=== PATIENT | male | born 1935 | race African-American/Black ===

== ENCOUNTER 2018-10-22 19:57 | Inpatient (IN) | payer MEDICARE, OTHER ==
[~2018-10-22] VITALS: Ht 182.9 cm; Wt 94.4 kg
[2018-10-22] MEDS ORDERED: SODIUM CHLORIDE 0.9% 1,000 ML IV ONE (20:14)
[2018-10-22] MEDS ORDERED: ONDANSETRON HCL 4MG/2ML INJ IV STA (20:14)
[2018-10-22 20:44] LABS: INR 1.1; PROTHROMBIN TIME 11.3 sec (9.6-11.0)
[2018-10-22 20:45] LABS: CHLORIDE 109 mEq/L (98-107)
[2018-10-22 20:47] LABS: BASOPHILS % 0.2 % (0.0-2.0); EOSINOPHILS % 0.1 % (0.0-5.0); HEMATOCRIT. 54.6 % (42.0-52.0); HEMOGLOBIN. 18.3 g/dL (14.0-18.0); LYMPHOCYTES % 8.6 % (20.0-50.0); MEAN CORPUSCULAR HEMOGLOBIN 27.9 pg (28.0-32.0); MEAN PLATELET VOLUME 9.4 fl (7.4-10.4); MONOCYTES % 6.6 % (2.0-8.0); NEUTROPHILS % 84.5 % (40.0-76.0); PLATELET 146 x1000/uL (130-400); RED BLOOD CELL COUNT 6.58 mill/uL (4.7-6.1); RED CELL DISTRIBUTION WIDTH 14.4 % (11.6-14.6)
[2018-10-22 20:53] LABS: CREATINE KINASE 112 IU/L (39-308)
[2018-10-22] MEDS ORDERED: IOHEXOL-350 100 ML BOTTLE ONE (22:03)
[2018-10-22] MEDS ORDERED: ASPIRIN 300MG SUPP PR ONE (22:30)
[2018-10-22] MEDS ORDERED: ASPIRIN 325MG TABLET PO ONE (22:30)
[2018-10-23] VITALS (8 sets, daily range): BP systolic 120–167; BP diastolic 32–118
[2018-10-23] MEDS ORDERED: ONDANSETRON HCL 4MG/2ML INJ IV PRN (08:45)
[2018-10-23] MEDS ORDERED: DEXTROSE 50% WATER 50ML SYRINGE IV PRN (08:45)
[2018-10-23] MEDS ORDERED: ACETAMINOPHEN 650MG SUPP PR PRN (08:45)
[2018-10-23] MEDS: INSULIN LISPRO 100 UNITS/ML SUBCUT SCH ×3 (09:17→18:00)
[2018-10-23] MEDS: SODIUM CHLORIDE 0.9% 1,000 ML IV SCH (09:51)
[2018-10-23] MEDS: BLOOD SUGAR DIAGNOSTIC STRIP TEST SCH ×4 (09:54→21:00)
[2018-10-23] MEDS ORDERED: ASPIRIN 300MG SUPP PR SCH (10:00)
[2018-10-23] MEDS: LORAZEPAM 2MG/ML CPJ IV PRN ×2 (12:09→20:44)
[2018-10-23] MEDS: ASPIRIN 600MG SUPP PR SCH (12:29)
[2018-10-23 13:02] LABS: BASOPHILS % 0.8 % (0.0-2.0); EOSINOPHILS % 0.4 % (0.0-5.0); HEMOGLOBIN. 17.8 g/dL (14.0-18.0); LYMPHOCYTES % 15.7 % (20.0-50.0); MEAN CORPUSCULAR HEMOGLOBIN 27.9 pg (28.0-32.0); MEAN CORPUSCULAR VOLUME 83.4 fL (80.0-94.0); MEAN PLATELET VOLUME 9.2 fl (7.4-10.4); MONOCYTES % 9.7 % (2.0-8.0); NEUTROPHILS % 73.4 % (40.0-76.0); PLATELET 158 x1000/uL (130-400); RED BLOOD CELL COUNT 6.36 mill/uL (4.7-6.1); RED CELL DISTRIBUTION WIDTH 14.5 % (11.6-14.6)
[2018-10-23 13:07] LABS: CHLORIDE 109 mEq/L (98-107)
[2018-10-23 13:14] LABS: LDL CHOLESTEROL 117 mg/dL (5-100)
[2018-10-23 13:16] LABS: HDL CHOLESTEROL 48 mg/dL (40-59)
[2018-10-24] VITALS (11 sets, daily range): BP systolic 105–198; BP diastolic 76–122
[2018-10-24] MEDS: SODIUM CHLORIDE 0.9% 1,000 ML IV SCH ×2 (00:55→12:00)
[2018-10-24] MEDS: INSULIN LISPRO 100 UNITS/ML SUBCUT SCH ×5 (00:55→21:00)
[2018-10-24 07:26] LABS: BASOPHILS % 0.4 % (0.0-2.0); EOSINOPHILS % 0.1 % (0.0-5.0); HEMATOCRIT. 53.3 % (42.0-52.0); HEMOGLOBIN. 17.7 g/dL (14.0-18.0); LYMPHOCYTES % 15.2 % (20.0-50.0); MEAN CORPUSCULAR HEMOGLOBIN 27.7 pg (28.0-32.0); MEAN CORPUSCULAR VOLUME 83.3 fL (80.0-94.0); MEAN PLATELET VOLUME 9.3 fl (7.4-10.4); MONOCYTES % 9.7 % (2.0-8.0); NEUTROPHILS % 74.6 % (40.0-76.0); PLATELET 152 x1000/uL (130-400); RED CELL DISTRIBUTION WIDTH 14.4 % (11.6-14.6)
[2018-10-24] MEDS: BLOOD SUGAR DIAGNOSTIC STRIP TEST SCH ×2 (07:30→21:15)
[2018-10-24 07:41] LABS: CHLORIDE 107 mEq/L (98-107)
[2018-10-24] MEDS: LORAZEPAM 2MG/ML CPJ IV PRN (10:09)
[2018-10-24] MEDS ORDERED: HYDRALAZINE 20MG/ML VIAL IV NR (10:15)
[2018-10-24] MEDS: ASPIRIN 600MG SUPP PR SCH (10:43)
[2018-10-24] MEDS ORDERED: DEXTROSE 50% WATER 50ML SYRINGE IV PRN (11:00)
[2018-10-24 12:07] LABS: ETHANOL BLOOD < 10 mg/dL
[2018-10-24 12:11] LABS: LDL CHOLESTEROL 102 mg/dL (5-100)
[2018-10-24 12:12] LABS: HDL CHOLESTEROL 52 mg/dL (40-59); T4 FREE 1.04 ng/dL (0.76-1.46)
[2018-10-24 12:27] LABS: FOLIC ACID (FOLATE) SERUM >20 ng/mL ng/mL (>5.38)
[2018-10-24 12:38] LABS: VITAMIN B12 SERUM 752 pg/mL (211-911)
[2018-10-24] MEDS: ENOXAPARIN 80MG/0.8ML SYR SUBCUT SCH ×2 (14:20→22:27)
[2018-10-24] MEDS: ATORVASTATIN CALCIUM 40MG TABLET PO SCH (22:27)
[2018-10-25] VITALS (12 sets, daily range): BP systolic 127–163; BP diastolic 73–103
[2018-10-25] MEDS: SODIUM CHLORIDE 0.9% 1,000 ML IV SCH ×2 (01:42→21:11)
[2018-10-25 06:18] LABS: BASOPHILS % 0.6 % (0.0-2.0); EOSINOPHILS % 0.2 % (0.0-5.0); HEMATOCRIT. 54.5 % (42.0-52.0); HEMOGLOBIN. 18.1 g/dL (14.0-18.0); LYMPHOCYTES % 10.4 % (20.0-50.0); MEAN CORPUSCULAR HEMOGLOBIN 27.7 pg (28.0-32.0); MEAN CORPUSCULAR VOLUME 83.3 fL (80.0-94.0); MEAN PLATELET VOLUME 9.7 fl (7.4-10.4); MONOCYTES % 11.3 % (2.0-8.0); NEUTROPHILS % 77.5 % (40.0-76.0); PLATELET 168 x1000/uL (130-400); RED BLOOD CELL COUNT 6.54 mill/uL (4.7-6.1); RED CELL DISTRIBUTION WIDTH 14.5 % (11.6-14.6)
[2018-10-25 06:31] LABS: CHLORIDE 107 mEq/L (98-107)
[2018-10-25] MEDS: BLOOD SUGAR DIAGNOSTIC STRIP TEST SCH ×4 (07:30→20:38)
[2018-10-25] MEDS: INSULIN LISPRO 100 UNITS/ML SUBCUT SCH ×4 (08:00→21:10)
[2018-10-25] MEDS: ENOXAPARIN 80MG/0.8ML SYR SUBCUT SCH ×2 (11:06→23:13)
[2018-10-25] MEDS: CEFEPIME 1,000 MG in DEXTROSE 5% WATER 50 ML IV SCH ×2 (11:07→23:13)
[2018-10-25] MEDS ORDERED: IPRATROPIUM/ALBUTEROL 0.5-3(2.5)MG/3ML NEB HHN PRN (11:15)
[2018-10-25] MEDS: METRONIDAZOLE 500 MG PREMIX 100 ML IV SCH ×2 (12:35→20:38)
[2018-10-25] MEDS: IPRATROPIUM/ALBUTEROL 0.5-3(2.5)MG/3ML NEB HHN SCH ×3 (12:44→21:12)
[2018-10-25] MEDS: ACETYLCYSTEINE 100MG/ML 10% VIAL 4ML INH SCH ×2 (12:44→21:12)
[2018-10-25 14:01] LABS: BG BASE EXCESS 0.1 mmol/L (-2.0-2.0); BG CARBOXYHEMOGLOBIN 0.3 % (0.5-1.5); BG DEOXYHEMOGLOBIN 7.6 % (0.0-5.0); BG FRACTION INSPIRED OXYGEN 36; BG HCO3 ACT 22.6 mmol/L (22.0-26.0); BG METHEMOGLOBIN 0.6 % (0.0-1.5); BG OXYGEN SATURATION 92.3 % (92.0-98.5); BG OXYHEMOGLOBIN 91.5 % (94.0-97.0); BG PCO2 32.1 mmHg (35.0-45.0); BG PH 7.466 (7.350-7.450); BG PO2 58.3 mmHg (75.0-100.0); BG SAMPLE SITE RIGHT RADIAL; BG TOTAL HEMOGLOBIN 19.2 g/dL (12.0-18.0); BG VENT MODE NASAL CANNULA
[2018-10-25] MEDS: ATORVASTATIN CALCIUM 40MG TABLET PO SCH (20:38)
[2018-10-26] VITALS (10 sets, daily range): BP systolic 128–151; BP diastolic 62–79
[2018-10-26] MEDS: IPRATROPIUM/ALBUTEROL 0.5-3(2.5)MG/3ML NEB HHN SCH ×6 (00:36→20:41)
[2018-10-26] MEDS: METRONIDAZOLE 500 MG PREMIX 100 ML IV SCH ×3 (03:16→20:17)
[2018-10-26] MEDS: SODIUM CHLORIDE 0.9% 1,000 ML IV SCH ×2 (03:18→17:20)
[2018-10-26] MEDS: ACETYLCYSTEINE 100MG/ML 10% VIAL 4ML INH SCH ×2 (04:15→11:58)
[2018-10-26 06:55] LABS: BASOPHILS % 0.3 % (0.0-2.0); HEMATOCRIT. 52.1 % (42.0-52.0); HEMOGLOBIN. 17.3 g/dL (14.0-18.0); LYMPHOCYTES % 10.9 % (20.0-50.0); MEAN CORPUSCULAR HEMOGLOBIN 27.7 pg (28.0-32.0); MEAN CORPUSCULAR VOLUME 83.4 fL (80.0-94.0); MEAN PLATELET VOLUME 9.8 fl (7.4-10.4); MONOCYTES % 11.2 % (2.0-8.0); NEUTROPHILS % 77.6 % (40.0-76.0); PLATELET 137 x1000/uL (130-400); RED BLOOD CELL COUNT 6.25 mill/uL (4.7-6.1); RED CELL DISTRIBUTION WIDTH 14.6 % (11.6-14.6)
[2018-10-26 07:17] LABS: CHLORIDE 109 mEq/L (98-107)
[2018-10-26] MEDS: INSULIN LISPRO 100 UNITS/ML SUBCUT SCH ×3 (08:00→21:00)
[2018-10-26] MEDS: BLOOD SUGAR DIAGNOSTIC STRIP TEST SCH ×3 (08:29→20:17)
[2018-10-26 09:12] LABS: BG BASE EXCESS 0.2 mmol/L (-2.0-2.0); BG CARBOXYHEMOGLOBIN 0.1 % (0.5-1.5); BG DEOXYHEMOGLOBIN 4.2 % (0.0-5.0); BG FRACTION INSPIRED OXYGEN 66; BG HCO3 ACT 22.8 mmol/L (22.0-26.0); BG METHEMOGLOBIN 0.4 % (0.0-1.5); BG OXYGEN SATURATION 95.8 % (92.0-98.5); BG OXYHEMOGLOBIN 95.3 % (94.0-97.0); BG PCO2 32.1 mmHg (35.0-45.0); BG PH 7.469 (7.350-7.450); BG PO2 75.6 mmHg (75.0-100.0); BG SAMPLE SITE RIGHT BRACHIAL; BG TOTAL HEMOGLOBIN 17.8 g/dL (12.0-18.0); BG VENT MODE VAPOTHERM
[2018-10-26] MEDS: CEFEPIME 1,000 MG in DEXTROSE 5% WATER 50 ML IV SCH ×2 (17:19→23:51)
[2018-10-26] MEDS: ENOXAPARIN 80MG/0.8ML SYR SUBCUT SCH ×2 (17:19→23:51)
[2018-10-26] MEDS: ATORVASTATIN CALCIUM 40MG TABLET PO SCH (20:17)
[2018-10-27] VITALS (12 sets, daily range): BP systolic 134–169; BP diastolic 70–93
[2018-10-27] MEDS: IPRATROPIUM/ALBUTEROL 0.5-3(2.5)MG/3ML NEB HHN SCH ×6 (03:24→20:44)
[2018-10-27] MEDS: SODIUM CHLORIDE 0.9% 1,000 ML IV SCH (06:15)
[2018-10-27] MEDS: METRONIDAZOLE 500 MG PREMIX 100 ML IV SCH ×3 (06:16→20:46)
[2018-10-27] MEDS: INSULIN LISPRO 100 UNITS/ML SUBCUT SCH ×4 (08:00→21:09)
[2018-10-27 08:03] LABS: BASOPHILS % 0.5 % (0.0-2.0); EOSINOPHILS % 0.6 % (0.0-5.0); HEMATOCRIT. 50.4 % (42.0-52.0); HEMOGLOBIN. 16.8 g/dL (14.0-18.0); MEAN CORPUSCULAR HEMOGLOBIN 27.7 pg (28.0-32.0); MEAN CORPUSCULAR VOLUME 83.3 fL (80.0-94.0); MEAN PLATELET VOLUME 9.7 fl (7.4-10.4); MONOCYTES % 10.9 % (2.0-8.0); PLATELET 125 x1000/uL (130-400); RED BLOOD CELL COUNT 6.05 mill/uL (4.7-6.1); RED CELL DISTRIBUTION WIDTH 14.7 % (11.6-14.6)
[2018-10-27] MEDS: BLOOD SUGAR DIAGNOSTIC STRIP TEST SCH ×4 (08:27→21:00)
[2018-10-27 08:32] LABS: CHLORIDE 112 mEq/L (98-107)
[2018-10-27] MEDS: ACETYLCYSTEINE 100MG/ML 10% VIAL 4ML INH SCH ×3 (09:03→16:12)
[2018-10-27] MEDS: ENOXAPARIN 80MG/0.8ML SYR SUBCUT SCH (11:36)
[2018-10-27] MEDS: CEFEPIME 1,000 MG in DEXTROSE 5% WATER 50 ML IV SCH ×2 (11:36→23:48)
[2018-10-27] MEDS: ATORVASTATIN CALCIUM 40MG TABLET PO SCH (20:45)
[2018-10-27] MEDS: HYDRALAZINE 20MG/ML VIAL IV PRN (21:10)
[2018-10-28] VITALS (13 sets, daily range): BP systolic 137–172; BP diastolic 72–90
[2018-10-28] MEDS: IPRATROPIUM/ALBUTEROL 0.5-3(2.5)MG/3ML NEB HHN SCH ×8 (00:10→21:52)
[2018-10-28] MEDS: ACETYLCYSTEINE 100MG/ML 10% VIAL 4ML INH SCH ×3 (00:10→16:13)
[2018-10-28] MEDS: METRONIDAZOLE 500 MG PREMIX 100 ML IV SCH ×3 (04:14→20:44)
[2018-10-28] MEDS: HYDRALAZINE 20MG/ML VIAL IV PRN (05:53)
[2018-10-28] MEDS: SODIUM CHLORIDE 0.9% 1,000 ML IV SCH ×3 (06:25→23:22)
[2018-10-28] MEDS: INSULIN LISPRO 100 UNITS/ML SUBCUT SCH ×4 (08:00→20:50)
[2018-10-28] MEDS: BLOOD SUGAR DIAGNOSTIC STRIP TEST SCH ×4 (08:15→20:44)
[2018-10-28 08:53] LABS: BASOPHILS % 0.3 % (0.0-2.0); EOSINOPHILS % 0.4 % (0.0-5.0); HEMATOCRIT. 49.6 % (42.0-52.0); HEMOGLOBIN. 16.8 g/dL (14.0-18.0); LYMPHOCYTES % 11.1 % (20.0-50.0); MEAN CORPUSCULAR HEMOGLOBIN 28.2 pg (28.0-32.0); MEAN CORPUSCULAR VOLUME 83.2 fL (80.0-94.0); MEAN PLATELET VOLUME 9.9 fl (7.4-10.4); MONOCYTES % 10.2 % (2.0-8.0); PLATELET 136 x1000/uL (130-400); RED BLOOD CELL COUNT 5.97 mill/uL (4.7-6.1); RED CELL DISTRIBUTION WIDTH 14.6 % (11.6-14.6)
[2018-10-28 08:54] LABS: CHLORIDE 111 mEq/L (98-107); INR 1.2; PROTHROMBIN TIME 11.8 sec (9.6-11.0)
[2018-10-28] MEDS: CEFEPIME 1,000 MG in DEXTROSE 5% WATER 50 ML IV SCH ×2 (11:08→23:23)
[2018-10-28] MEDS ORDERED: DOCUSATE SODIUM 250MG CAPSULE PO SCH (15:45)
[2018-10-28] MEDS ORDERED: LORAZEPAM 2MG/ML CPJ IV NR (16:00)
[2018-10-28] MEDS: ATORVASTATIN CALCIUM 40MG TABLET PO SCH (20:44)
[2018-10-29] VITALS (16 sets, daily range): BP systolic 126–176; BP diastolic 60–93
[2018-10-29] MEDS: ACETYLCYSTEINE 100MG/ML 10% VIAL 4ML INH SCH ×3 (00:41→16:41)
[2018-10-29] MEDS: IPRATROPIUM/ALBUTEROL 0.5-3(2.5)MG/3ML NEB HHN SCH ×5 (00:41→21:29)
[2018-10-29 07:18] LABS: BASOPHILS % 0.6 % (0.0-2.0); EOSINOPHILS % 1.5 % (0.0-5.0); HEMATOCRIT. 48.7 % (42.0-52.0); HEMOGLOBIN. 15.9 g/dL (14.0-18.0); LYMPHOCYTES % 14.4 % (20.0-50.0); MEAN CORPUSCULAR HEMOGLOBIN 27.6 pg (28.0-32.0); MEAN CORPUSCULAR VOLUME 84.5 fL (80.0-94.0); MEAN PLATELET VOLUME 9.3 fl (7.4-10.4); MONOCYTES % 10.6 % (2.0-8.0); NEUTROPHILS % 72.9 % (40.0-76.0); PLATELET 141 x1000/uL (130-400); RED BLOOD CELL COUNT 5.77 mill/uL (4.7-6.1); RED CELL DISTRIBUTION WIDTH 14.5 % (11.6-14.6)
[2018-10-29] MEDS: METRONIDAZOLE 500 MG PREMIX 100 ML IV SCH ×3 (07:22→21:48)
[2018-10-29] MEDS: HYDRALAZINE 20MG/ML VIAL IV PRN ×2 (07:23→09:48)
[2018-10-29] MEDS: BLOOD SUGAR DIAGNOSTIC STRIP TEST SCH ×4 (07:30→21:00)
[2018-10-29] MEDS: INSULIN LISPRO 100 UNITS/ML SUBCUT SCH ×4 (08:00→21:00)
[2018-10-29 08:12] LABS: CHLORIDE 109 mEq/L (98-107)
[2018-10-29] MEDS: CEFEPIME 1,000 MG in DEXTROSE 5% WATER 50 ML IV SCH ×2 (11:23→23:40)
[2018-10-29] MEDS: DOCUSATE SODIUM SUGAR FREE 100MG/10ML UDC PO SCH (11:23)
[2018-10-29] MEDS: SODIUM CHLORIDE 0.9% 1,000 ML IV SCH ×2 (11:25→13:15)
[2018-10-29] MEDS ORDERED: ENOXAPARIN 80MG/0.8ML SYR SUBCUT SCH (21:00)
[2018-10-29] MEDS ORDERED: LACTULOSE 20G/30ML UDC PO PRN (21:00)
[2018-10-29] MEDS: ATORVASTATIN CALCIUM 40MG TABLET PO SCH (21:46)
[2018-10-29 23:20] LABS: BG BASE EXCESS -3.7 mmol/L (-2.0-2.0); BG CARBOXYHEMOGLOBIN 0.3 % (0.5-1.5); BG DEOXYHEMOGLOBIN 3.9 % (0.0-5.0); BG FRACTION INSPIRED OXYGEN 70; BG HCO3 ACT 19.8 mmol/L (22.0-26.0); BG METHEMOGLOBIN 0.2 % (0.0-1.5); BG OXYGEN SATURATION 96.1 % (92.0-98.5); BG OXYHEMOGLOBIN 95.6 % (94.0-97.0); BG PO2 83.3 mmHg (75.0-100.0); BG SAMPLE SITE RIGHT RADIAL; BG TOTAL HEMOGLOBIN 15.6 g/dL (12.0-18.0); BG VENT MODE VAPOTHERM
[2018-10-29] MEDS: ENOXAPARIN 80MG/0.8ML SYR SUBCUT SCH (23:40)
[2018-10-30] VITALS (14 sets, daily range): BP systolic 127–166; BP diastolic 62–91
[2018-10-30] MEDS: ACETYLCYSTEINE 100MG/ML 10% VIAL 4ML INH SCH ×3 (00:44→11:50)
[2018-10-30] MEDS: IPRATROPIUM/ALBUTEROL 0.5-3(2.5)MG/3ML NEB HHN SCH ×6 (00:44→20:49)
[2018-10-30] MEDS: SODIUM CHLORIDE 0.9% 1,000 ML IV SCH ×2 (03:30→15:55)
[2018-10-30] MEDS: METRONIDAZOLE 500 MG PREMIX 100 ML IV SCH ×3 (03:33→21:11)
[2018-10-30 06:15] LABS: BASOPHILS % 0.4 % (0.0-2.0); EOSINOPHILS % 1.6 % (0.0-5.0); HEMATOCRIT. 48.2 % (42.0-52.0); LYMPHOCYTES % 16.4 % (20.0-50.0); MEAN CORPUSCULAR HEMOGLOBIN 27.9 pg (28.0-32.0); MEAN CORPUSCULAR VOLUME 84.4 fL (80.0-94.0); MEAN PLATELET VOLUME 9.5 fl (7.4-10.4); MONOCYTES % 13.3 % (2.0-8.0); NEUTROPHILS % 68.3 % (40.0-76.0); PLATELET 143 x1000/uL (130-400); RED BLOOD CELL COUNT 5.71 mill/uL (4.7-6.1); RED CELL DISTRIBUTION WIDTH 15.1 % (11.6-14.6)
[2018-10-30 06:26] LABS: CHLORIDE 109 mEq/L (98-107)
[2018-10-30] MEDS: DOCUSATE SODIUM SUGAR FREE 100MG/10ML UDC PO SCH (10:22)
[2018-10-30] MEDS: CEFEPIME 1,000 MG in DEXTROSE 5% WATER 50 ML IV SCH ×2 (10:25→23:58)
[2018-10-30] MEDS: ENOXAPARIN 80MG/0.8ML SYR SUBCUT SCH ×2 (10:30→23:53)
[2018-10-30] MEDS: BLOOD SUGAR DIAGNOSTIC STRIP TEST SCH ×2 (12:00→18:20)
[2018-10-30] MEDS: INSULIN LISPRO 100 UNITS/ML SUBCUT SCH ×2 (12:00→18:00)
[2018-10-30] MEDS ORDERED: LACTULOSE 20G/30ML UDC PO NR (12:15)
[2018-10-30] MEDS: HYDRALAZINE 20MG/ML VIAL IV PRN (13:10)
[2018-10-30] MEDS: ATORVASTATIN CALCIUM 40MG TABLET PO SCH (21:11)
[2018-10-31] VITALS (12 sets, daily range): BP systolic 144–159; BP diastolic 62–94
[2018-10-31] MEDS: INSULIN LISPRO 100 UNITS/ML SUBCUT SCH ×4 (00:08→18:00)
[2018-10-31] MEDS: IPRATROPIUM/ALBUTEROL 0.5-3(2.5)MG/3ML NEB HHN SCH ×6 (00:09→20:13)
[2018-10-31] MEDS: BLOOD SUGAR DIAGNOSTIC STRIP TEST SCH ×4 (00:09→18:11)
[2018-10-31] MEDS: SODIUM CHLORIDE 0.9% 1,000 ML IV SCH ×2 (05:34→18:12)
[2018-10-31] MEDS: METRONIDAZOLE 500MG TABLET GT SCH ×3 (05:34→22:14)
[2018-10-31] MEDS: DOCUSATE SODIUM SUGAR FREE 100MG/10ML UDC PO SCH (09:00)
[2018-10-31] MEDS: CEFEPIME 1,000 MG in DEXTROSE 5% WATER 50 ML IV SCH (11:30)
[2018-10-31] MEDS: ENOXAPARIN 80MG/0.8ML SYR SUBCUT SCH (11:31)
[2018-10-31 14:18] LABS: BASOPHILS % 0.6 % (0.0-2.0); HEMATOCRIT. 46.4 % (42.0-52.0); HEMOGLOBIN. 15.5 g/dL (14.0-18.0); LYMPHOCYTES % 14.6 % (20.0-50.0); MEAN CORPUSCULAR HEMOGLOBIN 27.8 pg (28.0-32.0); MEAN PLATELET VOLUME 9.5 fl (7.4-10.4); MONOCYTES % 13.2 % (2.0-8.0); NEUTROPHILS % 69.6 % (40.0-76.0); PLATELET 144 x1000/uL (130-400); RED BLOOD CELL COUNT 5.59 mill/uL (4.7-6.1); RED CELL DISTRIBUTION WIDTH 14.5 % (11.6-14.6)
[2018-10-31 14:40] LABS: CHLORIDE 107 mEq/L (98-107)
[2018-10-31 17:12] LABS: BG BASE EXCESS 1.2 mmol/L (-2.0-2.0); BG CARBOXYHEMOGLOBIN 0.6 % (0.5-1.5); BG DEOXYHEMOGLOBIN 4.9 % (0.0-5.0); BG FRACTION INSPIRED OXYGEN 50; BG HCO3 ACT 24.8 mmol/L (22.0-26.0); BG METHEMOGLOBIN 0.2 % (0.0-1.5); BG OXYGEN SATURATION 95.1 % (92.0-98.5); BG OXYHEMOGLOBIN 94.3 % (94.0-97.0); BG PCO2 36.1 mmHg (35.0-45.0); BG PH 7.454 (7.350-7.450); BG PO2 71.1 mmHg (75.0-100.0); BG SAMPLE SITE RIGHT RADIAL; BG TOTAL HEMOGLOBIN 15.4 g/dL (12.0-18.0); BG VENT MODE VAPOTHERM
[2018-10-31] MEDS: ATORVASTATIN CALCIUM 40MG TABLET PO SCH (22:14)
[2018-11-01] VITALS (15 sets, daily range): BP systolic 147–168; BP diastolic 68–90
[2018-11-01] MEDS: IPRATROPIUM/ALBUTEROL 0.5-3(2.5)MG/3ML NEB HHN SCH ×6 (00:29→20:23)
[2018-11-01] MEDS: ENOXAPARIN 80MG/0.8ML SYR SUBCUT SCH ×3 (00:47→23:06)
[2018-11-01] MEDS: BLOOD SUGAR DIAGNOSTIC STRIP TEST SCH ×5 (00:48→23:13)
[2018-11-01] MEDS: INSULIN LISPRO 100 UNITS/ML SUBCUT SCH ×5 (00:48→23:22)
[2018-11-01] MEDS: CEFEPIME 1,000 MG in DEXTROSE 5% WATER 50 ML IV SCH ×3 (00:48→22:54)
[2018-11-01 04:12] LABS: BARBITURATE SCREEN Negative ug/mL (Cutoff:0.1); BENZODIAZEPINE SCREEN Negative ng/mL (Cutoff:20); OPIATES SCREEN Negative ng/mL (Cutoff:5); PHENCYCLIDINE SCREEN Negative ng/mL (Cutoff:8)
[2018-11-01] MEDS: METRONIDAZOLE 500MG TABLET GT SCH ×3 (05:42→21:22)
[2018-11-01] MEDS: SODIUM CHLORIDE 0.9% 1,000 ML IV SCH ×2 (08:10→21:24)
[2018-11-01] MEDS: DOCUSATE SODIUM SUGAR FREE 100MG/10ML UDC PO SCH (08:21)
[2018-11-01] MEDS: HYDRALAZINE 20MG/ML VIAL IV PRN (09:53)
[2018-11-01] MEDS: ATORVASTATIN CALCIUM 40MG TABLET PO SCH (21:22)
[2018-11-02] VITALS (12 sets, daily range): BP systolic 136–170; BP diastolic 69–93
[2018-11-02] MEDS: IPRATROPIUM/ALBUTEROL 0.5-3(2.5)MG/3ML NEB HHN SCH ×6 (00:30→21:16)
[2018-11-02] MEDS: BLOOD SUGAR DIAGNOSTIC STRIP TEST SCH ×4 (06:10→22:52)
[2018-11-02] MEDS: INSULIN LISPRO 100 UNITS/ML SUBCUT SCH ×4 (06:15→22:52)
[2018-11-02 07:30] LABS: CHLORIDE 107 mEq/L (98-107)
[2018-11-02 07:33] LABS: BASOPHILS % 0.6 % (0.0-2.0); EOSINOPHILS % 1.4 % (0.0-5.0); HEMATOCRIT. 47.1 % (42.0-52.0); HEMOGLOBIN. 15.6 g/dL (14.0-18.0); LYMPHOCYTES % 11.7 % (20.0-50.0); MEAN CORPUSCULAR HEMOGLOBIN 27.7 pg (28.0-32.0); MEAN CORPUSCULAR VOLUME 83.8 fL (80.0-94.0); MEAN PLATELET VOLUME 9.7 fl (7.4-10.4); MONOCYTES % 11.9 % (2.0-8.0); NEUTROPHILS % 74.4 % (40.0-76.0); PLATELET 163 x1000/uL (130-400); RED BLOOD CELL COUNT 5.62 mill/uL (4.7-6.1); RED CELL DISTRIBUTION WIDTH 14.3 % (11.6-14.6)
[2018-11-02] MEDS: DOCUSATE SODIUM SUGAR FREE 100MG/10ML UDC PO SCH (09:01)
[2018-11-02] MEDS: SODIUM CHLORIDE 0.9% 1,000 ML IV SCH (10:35)
[2018-11-02] MEDS: ENOXAPARIN 80MG/0.8ML SYR SUBCUT SCH (12:53)
[2018-11-02] MEDS ORDERED: LORAZEPAM 2MG/ML CPJ IV SCH (13:45)
[2018-11-02] MEDS: DEXT 5%/0.9% NACL 1,000 ML IV SCH (18:54)
[2018-11-02] MEDS: ATORVASTATIN CALCIUM 40MG TABLET PO SCH (21:00)
[2018-11-02] MEDS: ENOXAPARIN 100MG/ML SYR SUBCUT SCH (22:52)
[2018-11-03] VITALS (12 sets, daily range): BP systolic 121–153; BP diastolic 69–88
[2018-11-03] MEDS: IPRATROPIUM/ALBUTEROL 0.5-3(2.5)MG/3ML NEB HHN SCH ×6 (00:42→20:49)
[2018-11-03] MEDS: INSULIN LISPRO 100 UNITS/ML SUBCUT SCH ×3 (06:00→18:00)
[2018-11-03] MEDS: BLOOD SUGAR DIAGNOSTIC STRIP TEST SCH ×3 (06:00→18:54)
[2018-11-03] MEDS: DEXT 5%/0.9% NACL 1,000 ML IV SCH ×2 (06:25→21:14)
[2018-11-03] MEDS: DOCUSATE SODIUM SUGAR FREE 100MG/10ML UDC PO SCH (09:00)
[2018-11-03] MEDS: ENOXAPARIN 100MG/ML SYR SUBCUT SCH ×2 (11:02→21:14)
[2018-11-03] MEDS: ATORVASTATIN CALCIUM 40MG TABLET PO SCH (21:00)
[2018-11-04] VITALS (12 sets, daily range): BP systolic 134–161; BP diastolic 59–85
[2018-11-04] MEDS: BLOOD SUGAR DIAGNOSTIC STRIP TEST SCH ×5 (00:15→21:00)
[2018-11-04] MEDS: IPRATROPIUM/ALBUTEROL 0.5-3(2.5)MG/3ML NEB HHN SCH ×6 (00:59→21:08)
[2018-11-04] MEDS: INSULIN LISPRO 100 UNITS/ML SUBCUT SCH ×5 (06:00→21:00)
[2018-11-04] MEDS: DOCUSATE SODIUM SUGAR FREE 100MG/10ML UDC PO SCH (10:40)
[2018-11-04] MEDS: ENOXAPARIN 100MG/ML SYR SUBCUT SCH ×2 (10:41→22:14)
[2018-11-04] MEDS: DEXT 5%/0.9% NACL 1,000 ML IV SCH (10:42)
[2018-11-04] MEDS: HYDRALAZINE 20MG/ML VIAL IV PRN (12:22)
[2018-11-04] MEDS: ATORVASTATIN CALCIUM 40MG TABLET PO SCH (22:14)
[2018-11-05] VITALS (13 sets, daily range): BP systolic 114–160; BP diastolic 46–97
[2018-11-05] MEDS: IPRATROPIUM/ALBUTEROL 0.5-3(2.5)MG/3ML NEB HHN SCH ×6 (04:00→20:13)
[2018-11-05 05:21] LABS: BASOPHILS % 0.8 % (0.0-2.0); EOSINOPHILS % 2.3 % (0.0-5.0); HEMATOCRIT. 46.7 % (42.0-52.0); HEMOGLOBIN. 15.6 g/dL (14.0-18.0); LYMPHOCYTES % 14.9 % (20.0-50.0); MEAN CORPUSCULAR HEMOGLOBIN 28.3 pg (28.0-32.0); MEAN CORPUSCULAR VOLUME 84.6 fL (80.0-94.0); MEAN PLATELET VOLUME 9.4 fl (7.4-10.4); MONOCYTES % 10.8 % (2.0-8.0); NEUTROPHILS % 71.2 % (40.0-76.0); PLATELET 226 x1000/uL (130-400); RED BLOOD CELL COUNT 5.52 mill/uL (4.7-6.1); RED CELL DISTRIBUTION WIDTH 14.6 % (11.6-14.6)
[2018-11-05 06:24] LABS: CHLORIDE 107 mEq/L (98-107)
[2018-11-05] MEDS: INSULIN LISPRO 100 UNITS/ML SUBCUT SCH ×4 (07:30→22:25)
[2018-11-05] MEDS: DOCUSATE SODIUM SUGAR FREE 100MG/10ML UDC PO SCH (08:12)
[2018-11-05] MEDS: BLOOD SUGAR DIAGNOSTIC STRIP TEST SCH ×4 (08:13→21:00)
[2018-11-05] MEDS: ENOXAPARIN 100MG/ML SYR SUBCUT SCH ×2 (12:57→22:08)
[2018-11-05] MEDS: ATORVASTATIN CALCIUM 40MG TABLET PO SCH (22:08)
[2018-11-06] VITALS (9 sets, daily range): BP systolic 120–183; BP diastolic 79–102
[2018-11-06] MEDS: IPRATROPIUM/ALBUTEROL 0.5-3(2.5)MG/3ML NEB HHN SCH ×5 (00:02→21:34)
[2018-11-06] MEDS: BLOOD SUGAR DIAGNOSTIC STRIP TEST SCH ×4 (07:30→21:00)
[2018-11-06] MEDS: INSULIN LISPRO 100 UNITS/ML SUBCUT SCH ×4 (07:30→21:00)
[2018-11-06] MEDS: DOCUSATE SODIUM SUGAR FREE 100MG/10ML UDC PO SCH (08:49)
[2018-11-06] MEDS: HYDRALAZINE 20MG/ML VIAL IV PRN (08:50)
[2018-11-06 11:47] LABS: BG BASE EXCESS -1.2 mmol/L (-2.0-2.0); BG CARBOXYHEMOGLOBIN 0.5 % (0.5-1.5); BG DEOXYHEMOGLOBIN 4.8 % (0.0-5.0); BG FRACTION INSPIRED OXYGEN 21; BG HCO3 ACT 20.3 mmol/L (22.0-26.0); BG METHEMOGLOBIN 0.5 % (0.0-1.5); BG OXYGEN SATURATION 95.2 % (92.0-98.5); BG OXYHEMOGLOBIN 94.2 % (94.0-97.0); BG PCO2 27.3 mmHg (35.0-45.0); BG PH 7.489 (7.350-7.450); BG PO2 71.7 mmHg (75.0-100.0); BG SAMPLE SITE RIGHT RADIAL; BG TOTAL HEMOGLOBIN 17.4 g/dL (12.0-18.0); BG VENT MODE ROOM AIR
[2018-11-06] MEDS: ENOXAPARIN 100MG/ML SYR SUBCUT SCH ×2 (12:00→23:22)
[2018-11-06] MEDS ORDERED: LACTULOSE 20G/30ML UDC PO NR (16:25)
[2018-11-06] MEDS: ATORVASTATIN CALCIUM 40MG TABLET PO SCH (20:42)
[2018-11-06] MEDS ORDERED: LACTULOSE 20G/30ML UDC PO PRN (21:00)
[2018-11-07] VITALS: BP 144/76
[2018-11-07] MEDS: IPRATROPIUM/ALBUTEROL 0.5-3(2.5)MG/3ML NEB HHN SCH ×6 (00:26→20:22)
[2018-11-07 04:00] VITALS: BP 146/80
[2018-11-07] MEDS: BLOOD SUGAR DIAGNOSTIC STRIP TEST SCH ×4 (06:34→21:54)
[2018-11-07] MEDS: INSULIN LISPRO 100 UNITS/ML SUBCUT SCH ×4 (06:34→21:00)
[2018-11-07 08:00] VITALS: BP 143/83
[2018-11-07] MEDS: DOCUSATE SODIUM SUGAR FREE 100MG/10ML UDC PO SCH (10:30)
[2018-11-07 11:58] VITALS: BP 149/77
[2018-11-07] MEDS: ENOXAPARIN 100MG/ML SYR SUBCUT SCH ×2 (12:00→23:30)
[2018-11-07 15:49] VITALS: BP 139/54
[2018-11-07 20:00] VITALS: BP 163/81
[2018-11-07] MEDS ORDERED: HYDRALAZINE 10 MG in SODIUM CHLORIDE 0.9% 49.5 ML IV PRN (21:15)
[2018-11-07] MEDS: ATORVASTATIN CALCIUM 40MG TABLET PO SCH (21:47)
[2018-11-07] MEDS: CLONIDINE 0.1MG TABLET PO PRN (22:51)
[2018-11-08] VITALS: BP 110/59
[2018-11-08] MEDS: IPRATROPIUM/ALBUTEROL 0.5-3(2.5)MG/3ML NEB HHN SCH ×5 (00:40→21:00)
[2018-11-08 04:00] VITALS: BP 131/66
[2018-11-08] MEDS: BLOOD SUGAR DIAGNOSTIC STRIP TEST SCH ×4 (06:57→20:35)
[2018-11-08] MEDS: INSULIN LISPRO 100 UNITS/ML SUBCUT SCH ×2 (06:57→12:20)
[2018-11-08 07:04] LABS: BASOPHILS % 0.7 % (0.0-2.0); EOSINOPHILS % 2.2 % (0.0-5.0); HEMATOCRIT. 49.8 % (42.0-52.0); HEMOGLOBIN. 16.4 g/dL (14.0-18.0); LYMPHOCYTES % 19.4 % (20.0-50.0); MEAN CORPUSCULAR HEMOGLOBIN 27.7 pg (28.0-32.0); MEAN CORPUSCULAR VOLUME 84.1 fL (80.0-94.0); MEAN PLATELET VOLUME 9.4 fl (7.4-10.4); MONOCYTES % 10.5 % (2.0-8.0); NEUTROPHILS % 67.2 % (40.0-76.0); PLATELET 271 x1000/uL (130-400); RED BLOOD CELL COUNT 5.92 mill/uL (4.7-6.1); RED CELL DISTRIBUTION WIDTH 14.6 % (11.6-14.6)
[2018-11-08 07:31] LABS: CHLORIDE 108 mEq/L (98-107)
[2018-11-08 08:00] VITALS: BP 139/69
[2018-11-08] MEDS: DOCUSATE SODIUM SUGAR FREE 100MG/10ML UDC PO SCH (09:39)
[2018-11-08] MEDS: ENOXAPARIN 100MG/ML SYR SUBCUT SCH (11:57)
[2018-11-08 12:00] VITALS: BP 153/71
[2018-11-08 16:00] VITALS: BP 137/70
[2018-11-08] MEDS: RIVAROXABAN 20 MG TABLET PO SCH (17:34)
[2018-11-08] MEDS: METFORMIN HCL 500MG TABLET PO SCH (17:35)
[2018-11-08 20:00] VITALS: BP 123/79
[2018-11-08] MEDS: ATORVASTATIN CALCIUM 40MG TABLET PO SCH (20:35)
[2018-11-09] VITALS (7 sets, daily range): BP systolic 131–165; BP diastolic 64–85
[2018-11-09] MEDS: IPRATROPIUM/ALBUTEROL 0.5-3(2.5)MG/3ML NEB HHN SCH ×4 (01:13→21:48)
[2018-11-09] MEDS: BLOOD SUGAR DIAGNOSTIC STRIP TEST SCH ×4 (06:44→21:00)
[2018-11-09] MEDS: DOCUSATE SODIUM SUGAR FREE 100MG/10ML UDC PO SCH ×2 (08:28→08:34)
[2018-11-09] MEDS: METFORMIN HCL 500MG TABLET PO SCH ×2 (08:28→17:11)
[2018-11-09] MEDS: CLONIDINE 0.1MG TABLET PO PRN (15:52)
[2018-11-09] MEDS: RIVAROXABAN 20 MG TABLET PO SCH (17:11)
[2018-11-09] MEDS: ATORVASTATIN CALCIUM 40MG TABLET PO SCH (22:41)
== END 2018-11-09 23:35 | DRG 871 ==
LOC: ER 19:57 → 5EST 10-23 00:31 → EDBEDREQDT 10-23 00:34 → EDBEDREQSVC 10-23 00:34 → EDBEDREQ 10-23 00:34 → EDBEDREQTM 10-23 00:34 → ENRESERV 10-23 07:00 → 6EST 11-06 13:36
PROVIDERS: ADMIT Internal Medicine; ATTEND Internal Medicine
DX: A41.9 Sepsis, unspecified organism (principal); I63.9 Cerebral infarction, unspecified; J69.0 Pneumonitis due to inhalation of food and vomit; J96.01 Acute respiratory failure with hypoxia; G93.41 Metabolic encephalopathy; G81.94 Hemiplegia, unspecified affecting left nondominant side; R47.01 Aphasia; I65.1 Occlusion and stenosis of basilar artery; I66.22 Occlusion and stenosis of left posterior cerebral artery; E11.9 Type 2 diabetes mellitus without complications; I10 Essential (primary) hypertension; E87.8 Other disorders of electrolyte and fluid balance, not elsewhere classified; J44.9 Chronic obstructive pulmonary disease, unspecified; R13.10 Dysphagia, unspecified; R47.1 Dysarthria and anarthria; E87.70 Fluid overload, unspecified; R29.810 Facial weakness; Z87.891 Personal history of nicotine dependence; Z78.1 Physical restraint status
CPT/HCPCS: 36415; 36600; 70496; 70498; 70544; 70553; 71045; 80048; 80061; 80307; 80320; 82375; 82550; 82607; 82746; 82805; 82962; 83036; 83880; 84439; 84443; 84481; 84484; 92610; 93005; 93306; 93880; 93970; 93971; 94640; 94667; 96361; 96374; 97110; 97112; 97163; 97167; 97530; 97535; 99291; A6261; C1893; J0360; J0692; J1650; J1815; J2060; J2405; J3490; J7030; J7040; J7042; J7060; J7070; J7608; J7620; Q9967; G0480